=== PATIENT | female | born 1970 ===

== ENCOUNTER 2022-06-19 05:11 | Day surgery (SDC) | payer OTHER ==
[~2022-06-19] VITALS: Ht 152.4 cm; Wt 89.8 kg
[2022-06-19] MEDS ORDERED: COLACE100 MG PO (08:06)
[2022-06-19] MEDS ORDERED: NEURONTIN300 MG PO (08:06)
[2022-06-19] MEDS ORDERED: PERCOCET 5-3251 EACH PO (08:06)
== END 2022-06-19 12:35 | disposition home or self-care (01) ==
LOC: CIR.AMB 05:11 → EDBD 10:00 → CIR.AMB 10:00
PROVIDERS: ATTEND Surgery
DX: K60.2 Anal fissure, unspecified (principal); K62.4 Stenosis of anus and rectum; K62.0 Anal polyp; K62.1 Rectal polyp; K64.8 Other hemorrhoids; K62.89 Other specified diseases of anus and rectum; Z20.822 Contact with and (suspected) exposure to COVID-19